=== PATIENT | female | born 1960 ===

== ENCOUNTER 2018-02-27 08:48 | Emergency (ER) | payer MEDICAID ==
[2018-02-27 08:48] VITALS: BMI 30.9
[2018-02-27 08:56] VITALS: RESP 18; O2SAT 99
--- NOTE | 2018-02-27 09:40 | RAD ---
Date of service: 02/27/2018 PROCEDURE: Radiographs of the Lumbar Spine. HISTORY: r/o fx COMPARISON: No prior. FINDINGS: BONES: Normal alignment. No listhesis. No fracture. DISC SPACES: Unremarkable. OTHER FINDINGS: None. IMPRESSION: Unremarkable radiographs of the lumbar spine.
[2018-02-27 09:46] LABS: SQUAMOUS EPITHIAL 1 /hpf (0-5); URINE BILIRUBIN NEGATIVE (NEGATIVE); URINE BLOOD 1+ (NEGATIVE); URINE CLARITY Hazy (Clear); URINE COLOR Yellow (YELLOW); URINE GLUCOSE (UA) NORMAL (Normal); URINE LEUKOCYTE ESTERASE TRACE Leu/uL (Negative); URINE PROTEIN NEGATIVE (NEGATIVE); URINE UROBILINOGEN NORMAL mg/dL (0.2-1.0)
[2018-02-27 10:28] VITALS: BP 125/86; PULSE 55; TEMP 97.6
--- NOTE | 2018-02-27 11:45 | C.PDOC ---
History Of Present Illness 57 y/o female presents to ED with c/o left lower back pain for 1 week radiating to back of left leg and knee. Patient reports dysuria and fever for "several days" and denies taking pain medication, hematuria, vomiting, leg numbness or any other complaints at this time. Time Seen by Provider: 02/27/18 09:05 Chief Complaint (Nursing): Back Pain History Per: Patient History/Exam Limitations: no limitations Onset/Duration Of Symptoms: Days Current Symptoms Are (Timing): Still Present Quality Of Discomfort: "Pain" Past Medical History Reviewed: Historical Data, Nursing Documentation, Vital Signs Vital Signs: Last Vital Signs Temp 97.6 F 02/27/18 10:27 Pulse 55 L 02/27/18 10:27 Resp 18 02/27/18 10:27 BP 125/86 02/27/18 10:27 Pulse Ox 99 02/27/18 11:46 - Medical History PMH: Gastritis, HTN Surgical History: Endoscopy - [facility] Procedures ESOPHAGOGASTRODUODENOSCOPY [EGD] W/CLOSED BIOPSY (03/20/15) INJECT/INFUSE NEC (09/06/14) Family History: States: No Known Family Hx - Social History Hx Tobacco Use: No Hx Alcohol Use: No Hx Substance Use: No Review Of Systems Constitutional: Positive for: Fever. Negative for: Chills Gastrointestinal: Negative for: Vomiting Genitourinary: Positive for: Dysuria. Negative for: Hematuria, Vaginal Discharge, Vaginal Bleeding Musculoskeletal: Positive for: Back Pain Skin: Negative for: Rash Physical Exam - Physical Exam Appears: Non-toxic, No Acute Distress Skin: Warm, Dry, No Rash Head: Atraumatic, Normacephalic Eye(s): bilateral: Normal Inspection Oral Mucosa: Moist Gastrointestinal/Abdominal: Soft, No Tenderness, No Guarding, No Rebound Back: No CVA Tenderness, Other (left lower back tenderness) Neurological/Psych: Oriented x3, Normal Speech, Normal Motor, Normal Sensation ED Course And Treatment O2 Sat by Pulse Oximetry: 99 (RA) Pulse Ox Interpretation: Normal Disposition - Disposition Referrals: [facility] Kelly Rejesse, [Non-Staff] - Disposition: HOME/ ROUTINE Disposition Time: 10:15 Condition: GOOD Additional Instructions: VIVIAN MOULTON, thank you for letting us take care of you today. The emergency medical care you received today was directed at your acute symptoms. If you were prescribed any medication, please fill it and take as directed. It may take several days for your symptoms to resolve. Return to the Emergency Department if your symptoms worsen, do not improve, or if you have any other problems. Please contact your doctor or call one of the physicians/clinics you have been referred to that are listed on the Patient Visit Information form that is included in your discharge packet. Bring any paperwork you were given at discharge with you along with any medications you are taking to your follow up visit. Our treatment cannot replace ongoing medical care by a primary care provider outside of the emergency department. Thank you for allowing the [facility] team to be part of your care today. Follow up with your primary care doctor in 2-3 days for re-evaluation and further management. VIVIAN MOULTON, tejinder por dejarnos atenderlo tamiko. La atencin mdica de emergencia que recibi hoy estaba dirigida a vianey sntomas agudos. Si le prescribieron algn medicamento, llnelo y tome segn las indicaciones. Vianey s ntomas pueden tardar varios bran en resolverse. Regrese al Departamento de Emergencia si vianey sntomas empeoran, no mejoran o si tiene algn otro problema. Comunquese con mcgregor mdico o llame a mayco de los mdicos / clnicas a los que herrera sido referido que figura en el formulario de Informacin de visita del paciente que se incluye en mcgregor paquete de eleonora. Traiga todos los documentos que recibi al momento del eleonora junto con los medicamentos que est tomando en mcgregor visita de seguimiento. Nuestro tratamiento no puede reemplazar la atencin mdica en curso por un proveedor de atencin primaria fuera del departamento de emergencia. Tejinder por permitir que el equipo de [facility] sea parte de mcgregor cuidado hoy. Emanuel un seguimiento con mcgregor mdico de atencin primaria en 2-3 bran para daisha nueva evaluacin y administracin adicional. Prescriptions: Cyclobenzaprine [Cyclobenzaprine HCl] 10 mg PO Q8 PRN #20 tab PRN Reason: Muscle Spasm Ibuprofen [Motrin] 600 mg PO Q6 PRN #20 tab PRN Reason: Pain, Moderate (4-7) Instructions: Sciatica, Low Back Pain (DC) Forms: Gen Discharge Inst Polish, [employer] (Polish) Print Language: PASHTO - Clinical Impression Clinical Impression: Low back pain - Scribe Statement The provider has reviewed the documentation as recorded by the Mikeibmohsen Fatima All medical record entries made by the Mikeibmohsen were at my direction and personally dictated by me. I have reviewed the chart and agree that the record accurately reflects my personal performance of the history, physical exam, medical decision making, and the department course for this patient. I have also personally directed, reviewed, and agree with the discharge instructions and disposition.
== END 2018-02-27 10:28 | disposition home or self-care (01) ==
LOC: C.ER 08:48
DX: M54.5 Low back pain (principal)
CPT/HCPCS: 72100; 81001; 87086; 96372; 99284; J1885

== ENCOUNTER 2018-04-12 07:14 | Emergency (ER) | payer SELFPAY ==
[2018-04-12 07:14] VITALS: BMI 30.9
[2018-04-12 07:26] VITALS: RESP 18
--- NOTE | 2018-04-12 08:30 | C.PDOC ---
Time Seen by Provider: 04/12/18 07:23 Chief Complaint (Nursing): Lower Extremity Problem/Injury Past Medical History Vital Signs: Last Vital Signs Temp 98.4 F 04/12/18 07:20 Pulse 60 04/12/18 07:20 Resp 18 04/12/18 07:20 BP Pulse Ox 98 04/12/18 07:20 - Medical History PMH: Gastritis, HTN Denies: Chronic Kidney Disease Surgical History: Endoscopy - [facility] Procedures ESOPHAGOGASTRODUODENOSCOPY [EGD] W/CLOSED BIOPSY (03/20/15) INJECT/INFUSE NEC (09/06/14) Family History: States: Unknown Family Hx - Social History Hx Tobacco Use: No Hx Alcohol Use: No Hx Substance Use: No - Immunization History Hx Tetanus Toxoid Vaccination: No Hx Influenza Vaccination: No Hx Pneumococcal Vaccination: No ED Course And Treatment O2 Sat by Pulse Oximetry: 98 Disposition Counseled Patient/Family Regarding: Studies Performed, Diagnosis, Need For Followup - Disposition Referrals: Podiatry Clinic [Outside] [facility] [Outside] [facility] [Outside] Disposition: HOME/ ROUTINE Disposition Time: 08:30 Condition: STABLE Additional Instructions: Follow up at clinic for further evaluation Prescriptions: Ibuprofen [Motrin Tab] 400 mg PO TID PRN #12 tab PRN Reason: Pain Instructions: Foot Sprain (DC) Print Language: KHMER - POA Present On Arrival: None - Clinical Impression Clinical Impression: Sprain and strain
--- NOTE | 2018-04-12 08:33 | C.PDOC ---
History Of Present Illness 57yo female, presents to the emergency department with complaints of pain to her right foot. Patient states she rolled her ankle several days ago after which she has been experiencing persistent pain, prompting visit. She denies any numbness/weakness, nausea/vomiting or any other associated symptoms. No other complaints at this time. Time Seen by Provider: 04/12/18 07:23 Chief Complaint (Nursing): Lower Extremity Problem/Injury History Per: Patient History/Exam Limitations: no limitations Past Medical History Reviewed: Historical Data, Nursing Documentation, Vital Signs Vital Signs: Last Vital Signs Temp 98.4 F 04/12/18 07:20 Pulse 60 04/12/18 07:20 Resp 18 04/12/18 07:20 BP Pulse Ox 98 04/12/18 07:20 - Medical History PMH: Gastritis, HTN Surgical History: Endoscopy - [facility] Procedures ESOPHAGOGASTRODUODENOSCOPY [EGD] W/CLOSED BIOPSY (03/20/15) INJECT/INFUSE NEC (09/06/14) Family History: States: No Known Family Hx - Social History Hx Tobacco Use: No Hx Alcohol Use: No Hx Substance Use: No - Immunization History Hx Tetanus Toxoid Vaccination: No Hx Influenza Vaccination: No Hx Pneumococcal Vaccination: No Review Of Systems Constitutional: Negative for: Fever Musculoskeletal: Positive for: Foot Pain Neurological: Negative for: Weakness, Numbness Physical Exam - Physical Exam Appears: Non-toxic, No Acute Distress Skin: Warm, Dry, No Rash Head: Atraumatic Eye(s): bilateral: Normal Inspection Nose: Normal Oral Mucosa: Moist Lips: Normal Appearing Neck: Normal ROM Extremity: Tenderness (right foot: tenderness to first metatarsal), Capillary Refill (<2 seconds), No Deformity, No Swelling Pulses: Left Dorsalis Pedis: Normal, Right Dorsalis Pedis: Normal Neurological/Psych: Oriented x3, Normal Speech ED Course And Treatment O2 Sat by Pulse Oximetry: 98 Pulse Ox Interpretation: Normal (RA) - Other Rad No standard instances X-Ray: Interpreted by Me, Viewed By Me Interpretation: X-Ray foot: neg Reassessment Condition: Unchanged Disposition Counseled Patient/Family Regarding: Studies Performed, Diagnosis, Need For Followup, Rx Given - Disposition Referrals: [facility] [Outside] [facility] [employer] [facility] [Outside] Podiatry Clinic [Outside] Disposition: HOME/ ROUTINE Disposition Time: 08:30 Condition: STABLE Additional Instructions: Follow up at clinic for further evaluation Prescriptions: Ibuprofen [Motrin Tab] 400 mg PO TID PRN #12 tab PRN Reason: Pain Losartan [Cozaar] 50 mg PO DAILY #7 tab Instructions: Foot Sprain (DC) Forms: [email or web address] (Nepali) Print Language: GREENLANDIC - Clinical Impression Clinical Impression: Sprain and strain - Scribe Statement The provider has reviewed the documentation as recorded by the Scribe (Keyon Dent) All medical record entries made by the Scribe were at my direction and personally dictated by me. I have reviewed the chart and agree that the record accurately reflects my personal performance of the history, physical exam, medical decision making, and the department course for this patient. I have also personally directed, reviewed, and agree with the discharge instructions and disposition.
[2018-04-12 09:11] VITALS: BP 160/111; PULSE 57; TEMP 97.8
--- NOTE | 2018-04-12 10:20 | RAD ---
Date of service: 04/12/2018 PROCEDURE: Right Foot Radiographs. HISTORY: pain COMPARISON: None. FINDINGS: BONES: No fracture. Plantar calcaneal spur noted. JOINTS: Normal. SOFT TISSUES: Normal. OTHER FINDINGS: None. IMPRESSION: Plantar calcaneal spur. Otherwise unremarkable.
[2018-04-12 15:16] VITALS: O2SAT 98
== END 2018-04-12 09:12 | disposition home or self-care (01) ==
LOC: C.ER 07:14
DX: S93.601A Unspecified sprain of right foot, initial encounter (principal); S96.911A Strain of unspecified muscle and tendon at ankle and foot level, right foot, initial encounter; X50.1XXA Overexertion from prolonged static or awkward postures, initial encounter; Y92.9 Unspecified place or not applicable